=== PATIENT | male | born 1975 | race Caucasian/White ===

== ENCOUNTER → 2017-12-26 | Outpatient (CLI) | payer OTHER | LOC: M RAD 09:04 | DX: M51.36 Other intervertebral disc degeneration, lumbar region (principal); Z96.9 Presence of functional implant, unspecified | CPT/HCPCS: 72110 ==

== ENCOUNTER → 2018-03-10 | Outpatient (CLI) | payer OTHER | LOC: M RAD 10:11 | DX: M51.27 Other intervertebral disc displacement, lumbosacral region (principal); R20.2 Paresthesia of skin | CPT/HCPCS: 72148 ==